=== PATIENT | male | born 1945 | race Caucasian/White ===

== ENCOUNTER 2017-04-02 08:59 | Emergency (ER) | payer MEDICARE, BC ==
[~2017-04-02] VITALS: Ht 185.4 cm; Wt 86.2 kg
[2017-04-02] MEDS ORDERED: ASPI81TA31 PO (09:13)
[2017-04-02] MEDS ORDERED: TYLENOL PO (09:13)
[2017-04-02] MEDS ORDERED: TAMSULOSIN (09:13)
[2017-04-02] MEDS ORDERED: SPIRIVA (09:13)
--- NOTE | 2017-04-02 09:53 | NUR ---
rapid flu collected and taken to lab.
[2017-04-02] MEDS ORDERED: predniSONE 20 MG TABLET PO ONE (10:00)
[2017-04-02] MEDS ORDERED: IPRATROPIUM BROMIDE 0.5 MG/2.5 ML NEBU NEB ONE (10:00)
[2017-04-02] MEDS ORDERED: ALBUTEROL SULFATE 2.5 MG/ 0.5 ML NEBU NEB ONE (10:00)
[2017-04-02] MEDS ORDERED: predniSONE 20 MG TABLET ONE (10:15)
[2017-04-02] MEDS ORDERED: ALBUTEROL SULFATE 2.5 MG/ 0.5 ML NEBU ONE (10:22)
[2017-04-02] MEDS ORDERED: IPRATROPIUM BROMIDE 0.5 MG/2.5 ML NEBU ONE (10:22)
[2017-04-02 11:06] VITALS: BP 124/74
== END 2017-04-02 11:09 | disposition home or self-care (01) ==
LOC: ER 08:59
DX: J09.X2 Influenza due to identified novel influenza A virus with other respiratory manifestations (principal); J44.1 Chronic obstructive pulmonary disease with (acute) exacerbation; N40.0 Benign prostatic hyperplasia without lower urinary tract symptoms; Z88.8 Allergy status to other drugs, medicaments and biological substances
CPT/HCPCS: 71010; 87400; 94640; 99285; A4663; J3590; J7512

== ENCOUNTER 2019-01-31 13:25 | Emergency (ER) | payer MEDICARE, BC ==
[~2019-01-31] VITALS: Ht 185.4 cm; Wt 78.5 kg
[~2019-01-31 13:25] MED LIST: ASPI81TA31 PO; SPIRIVA; TAMSULOSIN; TYLENOL PO
--- NOTE | 2019-01-31 13:27 | NUR ---
pt ambulated with steady gait with at bedside. A&O x4. c/o catheter removal. per pt Urologist, catheter was supposed to be off on 01/30 but patient was unable to do so. pt denies any discomfort, catheter not leaking. denies any fever or chills. fall precautions observed. call light within reach, s/r up x2
--- NOTE | 2019-01-31 13:35 | NUR ---
ERMD at bedside for MSE
--- NOTE | 2019-01-31 13:40 | NUR ---
CHRIS HARRIS TALKING TO DR. CHAVEZ, UROLOGIST, PER PT REQUEST. [phone]
--- NOTE | 2019-01-31 14:00 | NUR ---
irrigated bladder with 180cc of sterile NS. d/c'd hawkins catheter per MD orders. pt tolerated well. pt able to pee 150cc of pink fluid. made aware
--- NOTE | 2019-01-31 14:24 | NUR ---
Patient discharged to home in stable conditon. Written and verbal after care instructions given. Patient verbalizes understanding of instructions. pt ambulated with steady gait
[2019-01-31 14:27] VITALS: BP 122/65
== END 2019-01-31 14:22 | disposition home or self-care (01) ==
LOC: ER 13:25
DX: Z46.89 Encounter for fitting and adjustment of other specified devices (principal); J44.9 Chronic obstructive pulmonary disease, unspecified; Z88.8 Allergy status to other drugs, medicaments and biological substances; Z79.82 Long term (current) use of aspirin; Z79.899 Other long term (current) drug therapy
CPT/HCPCS: A4217; A4663